=== PATIENT | male | born 1990 | race Native Hawaiian/Other Pacific Islander ===

== ENCOUNTER 2022-01-23 09:05 | Emergency (ER) | payer OTHER ==
[~2022-01-23] VITALS: Ht 175.3 cm; Wt 77.1 kg
[2022-01-23 09:09] VITALS: BP 134/95; TEMP 97.9
[2022-01-23] MEDS ORDERED: DOXYCYCLINE100 MG PO (10:28)
[2022-01-23] MEDS ORDERED: IBU600 MG PO (10:28)
== END 2022-01-23 10:37 | disposition home or self-care (01) ==
LOC: ED 09:05
DX: N45.2 Orchitis (principal)
CPT/HCPCS: 81002; 87490; 87590; 99283